=== PATIENT | female | born 1955 | race Caucasian/White ===

== ENCOUNTER 2020-06-01 06:01 | Observation (INO) ==
--- NOTE | 2020-04-28 09:11 | PAT Medication Instructions ---
Medication Instructions Date of Service April 28, 2020 Home Medications acetaminophen 500 mg PO BID ascorbic acid (vitamin C) [Vitamin C] 500 mg PO QAM calcium carbonate-vitamin D3 [Calcium 500 + D (D3)] 1 tab PO QAM darifenacin 15 mg PO PM loperamide 2 mg PO QID PRN loratadine 10 mg PO QAM mesalamine [Pentasa] 1,000 mg PO TID multivitamin 1 tab PO QAM naproxen 500 mg PO BID pantoprazole 40 mg PO 1200 ASK your surgeon for instructions mesalamine [Pentasa] 1,000 mg PO TID naproxen 500 mg PO BID DO NOT take the morning of surgery ascorbic acid (vitamin C) [Vitamin C] 500 mg PO QAM calcium carbonate-vitamin D3 [Calcium 500 + D (D3)] 1 tab PO QAM loperamide 2 mg PO QID PRN loratadine 10 mg PO QAM multivitamin 1 tab PO QAM Take morning of surgery With a small sip of water, OTHERWISE NOTHING TO EAT OR DRINK AFTER MIDNIGHT: acetaminophen 500 mg PO BID (okay to take up to 4 hours prior to surgery if n eeded) pantoprazole 40 mg PO 1200 (depending on time of surgery) Take evening before surgery acetaminophen 500 mg PO BID darifenacin 15 mg PO PM loperamide 2 mg PO QID PRN (if needed) Other Notes If you have any questions please call us at [phone] or [phone] or [phone] or [phone]
--- NOTE | 2020-04-29 13:14 | Anesthesiology Consultation ---
Date of Service April 29, 2020 Assessment & Plan (1) Encounter for pre-operative examination: Per assessment on 04/29: Travel screen negative. No known COVID-19 positive contacts or current COVID-19 related symptoms. Surgeon arranging preop COVID testing. Awaiting results. Chart Review Chart Review: Acceptable Risk for Surgery (pending surgeon-ordered PCP clearance) and Patient seen in Pre Admission Testing Teaching & Discussion Pre-Anesthesia Teaching/Discussion Notes: Instructed NPO after midnight before surgery,except medications with 15 cc of water. Medication instructions provided according to the PAT guidelines. History Surgery Operation Date: 06/01/20 07:00 Proposed Procedures p Right Total Knee Arthroplasty - Haroldo Gore DO Height/Weight Height: 5 ft 4 in Weight: 123.6 kg Allergies Allergy/AdvReac Type Severity Reaction Status Date / Time Iodinated Contrast Media Allergy Intermediate Rash, hives Verified 04/29/20 13:12 latex Allergy Intermediate Rash Verified 04/25/20 11:14 Penicillins Allergy Intermediate Hives Verified 04/29/20 13:12 Medications Home Medications Medication Instructions Recorded Confirmed Last Taken acetaminophen 500 mg PO BID 04/25/20 04/25/20 Unknown ascorbic acid (vitamin C) [Vitamin 500 mg PO QAM 04/25/20 04/25/20 Unknown C] calcium carbonate-vitamin D3 1 tab PO QAM 04/25/20 04/25/20 Unknown [Calcium 500 + D (D3)] darifenacin 15 mg PO PM 04/25/20 04/25/20 Unknown loperamide 2 mg PO QID PRN 04/25/20 04/25/20 Unknown loratadine 10 mg PO QAM 04/25/20 04/25/20 Unknown mesalamine [Pentasa] 1,000 mg PO TID 04/25/20 04/25/20 Unknown multivitamin 1 tab PO QAM 04/25/20 04/25/20 Unknown naproxen 500 mg PO BID 04/25/20 04/25/20 Unknown pantoprazole 40 mg PO 1200 04/25/20 04/25/20 Unknown Past Medical History Medical History Crohns disease GERD (gastroesophageal reflux disease) Left knee DJD Morbid obesity Osteoarthritis Overactive bladder Exercise / Class Metabolic Activity II 4-5 Yardwork/Stairs/Walk up hill Past Family History Family History Father Diabetes Grandmother (Paternal) Diabetes Past Surgical History Surgical History History of bladder surgery bladder sling History of carpal tunnel release R/L History of colonoscopy History of esophagogastroduodenoscopy (EGD) History of left oophorectomy History of nasal septoplasty History of tonsillectomy History of tooth extraction Hx of arthroscopy of shoulder left Hx of foot surgery left for plantar fasciitis Hx of oral surgery for dental work Past Anesthesia History No Hx of Anesthesia Complications (except PONV) and No Family Hx of Anesthesia Complications History of PONV No Hx of Motion Sickness and History of PONV (no issues with most recent 3 surgeries when anesthesiologist was aware of hx PONV) Social History Smoking Status: Never smoker Do You Dip or Chew Tobacco: No Hx Alcohol Use: No Hx Substance Use: No substance use type: does not use Review of Systems Patient denies chest pain, shortness of breath, dyspnea on exertion, fever, chills, cough, wheezing, palpitations. Physical Exam Vital Signs VITALS BP 129/75 P 96 TEMP 98.3 SP02 96%RA RESP 16 PHYSICAL Full neck and c-spine range of motion. Full TMJ range of motion. TMD 3 finger breaths Mallampati Score 3 Dentition: missing molars, root canal repair on upper front left Lungs: clear throughout to auscultation Cardiac: regular rate and rhythm, no murmurs noted Spine: normal Carotid arteries: negative bruit Extremities: no edema Thick neck Testing Laboratory Results 04/29/20 13:45 04/29/20 13:45 PT 10.3 Seconds (9.0-12.0) 04/29/20 13:45 INR 1.0 (0.9-1.1) 04/29/20 13:45 APTT 30.9 Seconds (21.0-31.0) 04/29/20 13:45 Hemoglobin A1c 5.9 % (4.5-5.6) H 04/29/20 13:45 Urine Color Yellow 04/29/20 13:45 Urine Appearance Clear (Clear) 04/29/20 13:45 Urine pH 5.0 (4.5-7.5) 04/29/20 13:45 Ur Specific [place] 1.017 (1.000-1.030) 04/29/20 13:45 Urine Protein Negative (Negative) 04/29/20 13:45 Urine Glucose (UA) Negative (Negative) 04/29/20 13:45 Urine Ketones Negative (Negative) 04/29/20 13:45 Urine Nitrite Negative (Negative) 04/29/20 13:45 Ur Leukocyte Esterase Trace (Negative) H 04/29/20 13:45 Urine WBC (Auto) 1-5 /hpf (0-5) 04/29/20 13:45 Urine RBC (Auto) 0-4 /hpf (0-4) 04/29/20 13:45 U Hyaline Cast (Auto) 0 /lpf (0-5) 04/29/20 13:45 U Epithel Cells (Auto) >30 /lpf (0-5) H 04/29/20 13:45 Urine Bacteria (Auto) Negative (Negative) 04/29/20 13:45 Blood Type A Positive 04/29/20 13:45 Antibody Screen NEGATIVE 04/29/20 13:45 04/29/20 13:45 Urine Culture - Final Urine,Clean Catch More than three types of organisms present, all low counts mixed probable skin aurelio. No further identifications or sensitivities to follow. Electrocardiogram Date: 04/29/20 Findings: + NSR @ (87) Chest X-Ray Date: 04/29/20 FINDINGS: Unchanged calcified granuloma of the right lung base. Cardiac mediastinal and hilar silhouettes are within normal limits. No pneumothorax, pleural effusion, airspace consolidation or overt pulmonary edema. Degenerative changes of the spine. Bones are grossly intact. IMPRESSION: No acute process.
--- NOTE | 2020-04-29 14:20 | XRay Report ---
XR chest Pre-admission PA/Lat HISTORY: 64 years-old Female pat preoperative exam. No acute chest complaints COMPARISON: Chest radiographs 03/05/2016 TECHNIQUE: PA and lateral views of the chest FINDINGS: Unchanged calcified granuloma of the right lung base. Cardiac mediastinal and hilar silhouettes are w ithin normal limits. No pneumothorax, pleural effusion, airspace consolidation or overt pulmonary yasmeen ma. Degenerative changes of the spine. Bones are grossly intact. IMPRESSION: No acute process. ACT 112: Negative or not required by law. The above report was generated using voice recognition software. It may contain grammatical, syntax o r spelling errors. Electronically signed by: Tino Pelletier M.D. 04/29/2020 2:19 PM
[2020-04-29 14:28] LABS: Basophils # (auto) 0.04 K/uL (0-0.2); Basophils % (auto) 0.5 %; Eosinophils # (auto) 0.41 K/uL (0-0.5); Eosinophils % (auto) 5.3 %; Hematocrit (blood only) 40.3 % (37-47); Immature Granulocytes # (auto) 0.01 K/uL (0.00-0.02); Immature Granulocytes % (auto) 0.1 %; Lymphocytes # (auto) 1.66 K/uL (1.2-3.4); Lymphocytes % (auto) 21.4 %; Mean Corpuscular Hemoglobin 27.3 pg (25-34); Mean Corpuscular Hgb Conc 32.3 g/dL (32-36); Mean Corpuscular Volume 84.7 fL (80-100); Mean Platelet Volume 8.8 fL (7.4-10.4); Monocytes # (auto) 0.41 K/uL (0.11-0.59); Monocytes % (auto) 5.3 %; Neutrophils # (auto) 5.21 K/uL (1.4-6.5); Neutrophils % (auto) 67.4 %; Platelet Count 263 K/uL (130-400); RDW Coefficient of Variation 14.9 % (11.5-14.5); RDW Standard Deviation 46.5 fL (36.4-46.3); Red Blood Count 4.76 M/uL (4.2-5.4); White Blood Count 7.74 K/uL (4.8-10.8)
[2020-04-29 14:30] LABS: Appearance Urine Clear (Clear); Bacteria Urine Automated Negative (Negative); Bilirubin Urine Negative (Negative); Blood Urine Negative (Negative); Cast Urine Automated 0 /lpf (0-5); Color Urine Yellow; Epithelial Cell Urine Auto >30 /lpf (0-5); Glucose Urine UA Negative (Negative); Ketones Urine Negative (Negative); Leukocyte Esterase Urine Trace (Negative); Nitrite Urine Negative (Negative); Protein Urine Negative (Negative); RBC Urine Automated 0-4 /hpf (0-4); Specific Gravity Urine 1.017 (1.000-1.030); Urobilinogen Urine Negative (Negative)
[2020-04-29 14:36] LABS: Partial Thromboplastin Ratio 1.1; Partial Thromboplastin Time 30.9 Seconds (21.0-31.0); Prothrombin Time 10.3 Seconds (9.0-12.0)
[2020-04-29 14:54] LABS: Albumin Level 3.5 gm/dl (3.4-5.0); BUN Creatinine Ratio 15.3 (10-20); Creatinine Clr Calc Pharmacy 70.8 ml/min; Est GFR (African American) 64.4; Est GFR (Non-African American) 55.6; Potassium 3.9 mmol/L (3.5-5.1)
--- NOTE | 2020-04-29 14:55 | Electrocardiogram Report ---
Test Reason : Blood Pressure : / mmHG Vent. Rate : 087 BPM Atrial Rate : 087 BPM P-R Int : 162 ms QRS Dur : 094 ms QT Int : 374 ms P-R-T Axes : 072 080 070 degrees QTc Int : 450 ms Normal sinus rhythm Normal ECG When compared with ECG of 05-MAR-2016 11:02, No significant change was found Confirmed by Samuel Finn ([id number]) on 04/29/2020 2:55:29 PM Referred By: Haroldo Gore Confirmed By:Samuel Finn
[2020-04-30 06:48] LABS: Estimated Average Glucose 123 mg/dl; Hemoglobin A1C 5.9 % (4.5-5.6)
--- NOTE | 2020-05-23 08:17 | History & Physical Report ---
Date of Service May 23, 2020 date of surgery: 06/01/20 Procedure: Right Total Knee Arthroplasty Assessment & Plan (1) Arthritis of right knee: she presents with increased pain in her right knee, has had previous injections without much relief but also has had reactions to these as well. her x-rays showing advanced DJD right knee, she would like to proceed with a block right TKA. The risks and benefits have been discussed including, but not limited to, risk of infection, nerve injury, stiffness, loss of motion, failure to improve, etc. Reasonable outcomes and options of treatment were discussed. An explanation of appropriate alternatives to the procedure that may be advantageous were discussed and their risks and benefits, as well as the risks and benefits of not proceeding with treatment. I offered to answer any additional inquiries concerning the treatment involved. All the patient's questions were answered. The patient is agreeable, understanding of the treatment plan and alternatives, and wishes to proceed with the treatment plan. History of Present Illness Chief Complaint: Right knee pain Primary Care Provider: Henri Carpenter PA-C Elvia is a 64 year old female who complains of Right knee pain, presents for pre-op evaluation prior to a Right total knee replacement by dr Gore at [facility]. she complains of pain, crepitus, decreased range of motion and stiffness in her right knee. she states that the symptoms have been chronic and non-traumatic and states that the symptoms are moderate-severe. The pain is described as aching, sharp and throbbing. her symptoms are aggravated by ascending stairs, daily activities, first steps while awake walking. Prior NSAIDs include Aleve and IBU. she has been treated with previous injections in the past without much relief and has also had reaction including increased pain and swelling after the injections. Allergies Allergy/AdvReac Type Severity Reaction Status Date / Time Iodinated Contrast Media Allergy Intermediate Rash, hives Verified 04/29/20 13:12 latex Allergy Intermediate Rash Verified 04/25/20 11:14 Penicillins Allergy Intermediate Hives Verified 04/29/20 13:12 Home Medications Home Medications Medication Instructions Recorded Confirmed Type acetaminophen 500 mg PO BID 04/25/20 04/25/20 History ascorbic acid (vitamin C) [Vitamin 500 mg PO QAM 04/25/20 04/25/20 History C] calcium carbonate-vitamin D3 1 tab PO QAM 04/25/20 04/25/20 History [Calcium 500 + D (D3)] darifenacin 15 mg PO PM 04/25/20 04/25/20 History loperamide 2 mg PO QID PRN 04/25/20 04/25/20 History loratadine 10 mg PO QAM 04/25/20 04/25/20 History mesalamine [Pentasa] 1,000 mg PO TID 04/25/20 04/25/20 History multivitamin 1 tab PO QAM 04/25/20 04/25/20 History naproxen 500 mg PO BID 04/25/20 04/25/20 History pantoprazole 40 mg PO 1200 04/25/20 04/25/20 History Past Med/Surg History Medical History Crohns disease GERD (gastroesophageal reflux disease) Left knee DJD Morbid obesity Osteoarthritis Overactive bladder Surgical History History of bladder surgery bladder sling History of carpal tunnel release R/L History of colonoscopy History of esophagogastroduodenoscopy (EGD) History of left oophorectomy History of nasal septoplasty History of tonsillectomy History of tooth extraction Hx of arthroscopy of shoulder left Hx of foot surgery left for plantar fasciitis Hx of oral surgery for dental work Family History Father Diabetes Grandmother (Paternal) Diabetes Social History Smoking Status: Never smoker Second Hand Exposure: No; Do You Dip or Chew Tobacco: No; Tobacco Cessation Education Requested by Patient: No Hx Alcohol Use: No Hx Substance Use: No Preferred Language: Yoruba Communication Ability: Effective Mica Spreader Required: No Beliefs That Will Affect Care: None Current Living Situation: Spouse Other Information That Helps Us Care for You: No Feels Safe at Home: Yes Safety Concerns: Feels Safe At This Time Assistive Devices: None Review of Systems Review of Systems: All systems reviewed & are unremarkable except as noted in HPI & below Constitutional: no fever, no chills and no sweats Respiratory: no cough and no dyspnea Cardiovascular: no chest pain, no dyspnea and no orthopnea Gastrointestinal: no abdominal pain, no nausea and no vomiting Musculoskeletal: as per Subjective / HPI Physical Exam Physical Exam: HT: 5ft 4in WT: 123.6kg Constitutional: WD/WN, vitals as above no acute distress Respiratory: normal respiratory effort, lungs clear to auscultation no respiratory distress, no labored breathing and does not use accessory muscles Cardiovascular: RRR, no murmur, no edema Gastrointestinal (Abdomen): normal bowel sounds, soft, nontender, no hepatosplenomegaly Musculoskeletal: Knee: + knee abnormal to inspection (Right knee-), + effusion (+1 effusion), + limited ROM of knee (ROM 0/3/110), + knee ROM with crepitation, + joint line tenderness (medial joint line) and + Nadine's sign positive; no deformity, no skin erythema, no ecchymosis, no valgus laxity, no varus laxity, anterior drawer test negative, Jasen's sign negative and pivot shift test negative Results & Data Results & Data ([facility]) Laboratory Results Laboratory Results WBC 7.74 K/uL (4.8-10.8) 04/29/20 13:45 RBC 4.76 M/uL (4.2-5.4) 04/29/20 13:45 Hgb 13.0 g/dL (12.0-16.0) 04/29/20 13:45 Hct 40.3 % (37-47) 04/29/20 13:45 MCV 84.7 fL (80-100) 04/29/20 13:45 MCH 27.3 pg (25-34) 04/29/20 13:45 MCHC 32.3 g/dL (32-36) 04/29/20 13:45 RDW Std Deviation 46.5 fL (36.4-46.3) H 04/29/20 13:45 RDW Coeff of Jabari 14.9 % (11.5-14.5) H 04/29/20 13:45 Plt Count 263 K/uL (130-400) 04/29/20 13:45 MPV 8.8 fL (7.4-10.4) 04/29/20 13:45 Immature Gran % (Auto) 0.1 % 04/29/20 13:45 Neut % (Auto) 67.4 % 04/29/20 13:45 Lymph % (Auto) 21.4 % 04/29/20 13:45 [place] % (Auto) 5.3 % 04/29/20 13:45 Eos % (Auto) 5.3 % 04/29/20 13:45 Baso % (Auto) 0.5 % 04/29/20 13:45 Neut # (Auto) 5.21 K/uL (1.4-6.5) 04/29/20 13:45 Lymph # (Auto) 1.66 K/uL (1.2-3.4) 04/29/20 13:45 Woods # (Auto) 0.41 K/uL (0.11-0.59) 04/29/20 13:45 Eos # (Auto) 0.41 K/uL (0-0.5) 04/29/20 13:45 Baso # (Auto) 0.04 K/uL (0-0.2) 04/29/20 13:45 Immature Gran # (Auto) 0.01 K/uL (0.00-0.02) 04/29/20 13:45 PT 10.3 Seconds (9.0-12.0) 04/29/20 13:45 INR 1.0 (0.9-1.1) 04/29/20 13:45 APTT 30.9 Seconds (21.0-31.0) 04/29/20 13:45 PTT Ratio 1.1 04/29/20 13:45 Sodium 138 mmol/L (136-145) 04/29/20 13:45 Potassium 3.9 mmol/L (3.5-5.1) 04/29/20 13:45 Chloride 106 mmol/L (98-107) 04/29/20 13:45 Carbon Dioxide 24 mmol/L (21-32) 04/29/20 13:45 Anion Gap 8.0 (3-11) 04/29/20 13:45 BUN 16 mg/dl (7-18) 04/29/20 13:45 Creatinine 1.07 mg/dl (0.6-1.2) 04/29/20 13:45 Est Cr Clr Drug Dosing 70.8 ml/min 04/29/20 13:45 Est GFR ( Amer) 64.4 04/29/20 13:45 Est GFR (Non-Af Amer) 55.6 04/29/20 13:45 BUN/Creatinine Ratio 15.3 (-20) 04/29/20 13:45 Glucose 112 mg/dl (70-99) H 04/29/20 13:45 Estimat Average Glucose 123 mg/dl 04/29/20 13:45 Hemoglobin A1c 5.9 % (4.5-5.6) H 04/29/20 13:45 Calcium 9.0 mg/dl (8.5-10.1) 04/29/20 13:45 Albumin 3.5 gm/dl (3.4-5.0) 04/29/20 13:45 Urine Color Yellow 04/29/20 13:45 Urine Appearance Clear (Clear) 04/29/20 13:45 Urine pH 5.0 (4.5-7.5) 04/29/20 13:45 Ur Specific [place] 1.017 (1.000-1.030) 04/29/20 13:45 Urine Protein Negative (Negative) 04/29/20 13:45 Urine Glucose (UA) Negative (Negative) 04/29/20 13:45 Urine Ketones Negative (Negative) 04/29/20 13:45 Urine Blood Negative (Negative) 04/29/20 13:45 Urine Nitrite Negative (Negative) 04/29/20 13:45 Urine Bilirubin Negative (Negative) 04/29/20 13:45 Urine Urobilinogen Negative (Negative) 04/29/20 13:45 Ur Leukocyte Esterase Trace (Negative) H 04/29/20 13:45 Urine WBC (Auto) 1-5 /hpf (0-5) 04/29/20 13:45 Urine RBC (Auto) 0-4 /hpf (0-4) 04/29/20 13:45 U Hyaline Cast (Auto) 0 /lpf (0-5) 04/29/20 13:45 U Epithel Cells (Auto) >30 /lpf (0-5) H 04/29/20 13:45 Urine Bacteria (Auto) Negative (Negative) 04/29/20 13:45 Blood Type A Positive 04/29/20 13:45 Antibody Screen NEGATIVE 04/29/20 13:45 Diagnostic Findings Right Knee X-ray showing advanced degenerative changes to the right knee, narrowing of the medial compartment and patello-femoral joint with patellar spurring noted, findings showing joint space narrowing of the medial compartment and patello-femoral joint, osteophyte formation and subchondral sclerosis noted. overall varus alignment. no acute bony pathology noted.
[~2020-06-01 06:01] MED LIST: ACETAMINOPHEN 500 MG TAB PO SCH; CeleBREX 200 MG CAP PO SCH; FAMOTIDINE 20 MG TAB PO SCH; GABAPENTIN 600 MG DOSE PO SCH; LR 500ML BOLUS, THEN 15ML/HR IV SCH; METOCLOPRAMIDE HCL 10 MG TABLET PO SCH; ROPIVACAINE 0.5% HCL/PF 150 MG, BUPIVACAINE 0.75% MPF 20 ML, EPINEPHrine 30MG/30ML (OR ... INFIL SCH; TRANEXAMIC ACID 1,000 MG **IV Intra-op IV SCH; TRANEXAMIC ACID 1,000 MG **IV Pre-op IV SCH; dexAMETHasone 4 MG TAB PO SCH
--- OUTSIDE RECORDS SUMMARY | 2020-06-01 06:05 | External Medical Summary | Continuity of Care Document ---
:1955 Author Name Nakia Shannon, Provider Address Unavailable Unavailable , Care Team Providers Name Role Phone David Shen [email or web address]AV[facility] CAST Unavailable Unavailable Problems Active medical history not documented Allergies and Adverse Reactions Allergy history not documented Medications Medications not documented Procedures Procedures not documented Immunizations Immunizations not documented Plan of Treatment Planned Observations Planned Goals not documented Results No Known Results Results not documented Encounters Appointment; David Shen M.D. 23-Feb-2014 13:40 Encounter Diagnosis: Problem not documented
[2020-06-01] MEDS ORDERED: BUPIVACAINE 0.25% 30 ML VIAL ONE (06:32)
[2020-06-01] MEDS ORDERED: BUPIVACAINE 0.5 % 5 MG/1 ML PF 10ML VIAL ONE (06:32)
[2020-06-01] MEDS ORDERED: KETAMINE 50 MG/5 ML SYRINGE ONE (06:41)
[2020-06-01] MEDS ORDERED: MIDAZOLAM HCL 1 MG/ML 2ML VIAL ONE ×2 (06:41→09:14)
[2020-06-01] MEDS ORDERED: PROPOFOL IV EMULSION 10 MG/ML 20 ML VIAL IV ONE (06:41)
[2020-06-01] MEDS ORDERED: DEXAMETHASONE SOD INJ 4 MG/ML VIAL ONE (06:41)
[2020-06-01] MEDS ORDERED: LIDOCAINE HCL 2% 2 ML VIAL/AMP(20MG/ML) INFIL ONE (06:41)
[2020-06-01] MEDS ORDERED: ONDANSETRON INJ 2 MG/ML 2 ML VIAL ONE (06:41)
[2020-06-01] MEDS ORDERED: GLYCOPYRROLATE 0.2 MG/ML VIAL ONE (06:41)
--- NOTE | 2020-06-01 07:13 | History & Physical Bridge Note ---
Date of Service June 01, 2020 History & Physical Bridge Note I have examined the patient, reviewed the History & Physical and in the interval since the performance of the History & Physical I have noted the following changes of clinical significance: no changes noted
[2020-06-01] MEDS ORDERED: Nursing to Pharmacy Communication SCH (07:15)
[2020-06-01] MEDS ORDERED: ORTHO JOINT ANESTHETIC ONE ×2 (07:20→08:53)
[2020-06-01] MEDS ORDERED: BACITRACIN INJ 50,000 UNIT VIAL ONE ×2 (07:20→08:53)
[2020-06-01] MEDS ORDERED: ATROPINE SULFATE 0.1 MG/ML 10ML SYR IV PRN (08:14)
[2020-06-01] MEDS ORDERED: ONDANSETRON INJ 2 MG/ML 2 ML VIAL IV PRN ×2 (08:14→12:04)
[2020-06-01] MEDS ORDERED: ePHEDrine sulfate 50 MG/ML AMP IV PRN (08:14)
--- NOTE | 2020-06-01 10:23 | Operative Report ---
Post Operative Report Pre & Post Diagnosis Operation Date: 06/01/20 08:20 Pre-Op Diagnosis: Osteoarthritis, Right Knee Post-Op Diagnosis: Osteoarthritis, Right Knee I identified the patient and participated in the time-out.: Yes Procedure Operation Date: 06/01/20 08:20 Actual Procedures p Right Total Knee Arthroplasty, Cemented(Right) utilizing [employer] journey 2 patient matched total knee arthroplasty size 4 femur to tibia 11 polytwenty 9 oval patella- Haroldo Gore DO Surgeon Haroldo Gore DO Decal [employer]lier [employer] ABBASI Estimated Blood Loss 5 Findings Consistent with Post-Op Diagnosis Patient presents with severe end-stage DJD 10 degree flexion contracture varus alignment subchondral cystic changes marginal osteophytes moderate to large effusion eburnated bone tricompartmentally Specimens Bone and cartilage Drains Medium bore Hemovac Anesthesia Type MAC Spinal Regional Disposition Accompanied Patient To Recovery: No Disposition: Recovery Room Indications Patient presents with severe end-stage tricompartmental degenerative joint disease right knee no response to conservative management patient failed times a corticosteroid injection Visco supplementation relative rest activity modification weight loss physical therapy the above intraoperative findings noted time surgery Description of Procedure After proper prepping and draping of the Right lower extremity anterior midline incision was made over the region of the extensor extensor mechanism after meticulous hemostasis was obtained and maintained in subcutaneous tissues a medial parapatellar incision was made The patella was subluxed lateralward the medial lateral gutter were cleaned from any hypertrophic synovitis and scar tissue of the distal femoral block was placed and the distal femoral osteotomy cut was made subsequently the chamfers anterior and posterior osteotomy cuts were made utilizing the 4-in-1 block the tibia was subsequently subluxed anteriorward medial and ateral meniscal remnants were excised in their entirety remnants of the anterior and posterior cruciate ligaments were excised in their entirety excellent exposure of the proximal tibia was obtained the tibial osteotomy guide was placed on the proximal tibial osteotomy cut was made once again the knee was irrigated with copious amounts of sterile saline solution the patella was subsequently everted lateralward thickened scar tissue around the patella was removed the patella was subsequently cut utilizing a freehand technique and was drilled prepared for final preparation and placement of patella socially flexion-extension gaps were checked and the equal and symmetric trials were placed to the appropriate femoral and tibial trials with poly-spacer being placed for equal flexion and extension gaps and full range of motion including extension to 0 and flexion to 140 the trial components after having been taken to recovery range of motion was subsequently removed meticulous hemostasis was obtained and maintained subsequently a knee block injection of joint cocktail including ropivacaine 0.5% 150 mg. Bupivacaine 0.5% epinephrine 1-200,030 mL's toradol 30 mg dexamethasone 4 mg ketamine 10 mg clonidine 100 micrograms normal saline solution 30 mg was infiltrated into the soft tissues of the posterior knee medial lateral gutters and periosteal synovium special attention was paid to protect neurovascular structures at all times subsequently trial components having been removed the knee was irrigated with sterile saline solution. debris was removed the proximal tibia was subsequently prepared and was made ready for the placement of the tibial component tibial component was also cemented and tamped into position the femoral component was subsequently placed and cemented in the position the patellar component was subsequently cemented in position because hemostasis once again obtained and maintained wound having been thoroughly irrigated with debridement and debridement lavage was performed as well as a medial parapatellar incision closed with #1 Vicryl in interrupted fashion subcutaneous was closed with #2 Vicryl skin was closed with skin clips. PA-C was necessary for prepping and drapping as well as wound closure of deep fascia Sub cutaneous tissue and skin and was necessary for the case. A sterile compressive dressing was placed patient was taken to recovery in stable condition of report dictated by Bao I attest to the content of the Intraoperative Record and any orders documented therein. Any exceptions are noted below. I attest to the content of the Intraoperative Record and any orders documented therein. Any exceptions are noted below.
--- NOTE | 2020-06-01 11:41 | XRay Report ---
RIGHT KNEE 2 VIEWS History: Right total knee arthroplasty. Degenerative arthritis. Postop. FINDINGS: The patient is status post a right total knee arthroplasty. The hardware is intact. No frac ture or dislocation. Surgical drains are in place. IMPRESSION: Right total knee arthroplasty. No evidence for hardware complication. ACT 112: Negative or not required by law. Electronically signed by: Henrique Sargent M.D. 06/01/2020 11:39 AM
[2020-06-01] MEDS ORDERED: SODIUM CHLORIDE 0.9% 1000ML 1,000 ML IV SCH (12:04)
[2020-06-01] MEDS ORDERED: HYDROmorphone INJ 0.5 MG/0.5 ML SYR IV PRN (12:04)
[2020-06-01] MEDS ORDERED: NALOXONE HCL 0.4 MG/1 ML VIAL/CARP IV PRN (12:04)
[2020-06-01] MEDS ORDERED: MAGNESIUM HYDROXIDE SUSP 30 ML UDC PO PRN (12:04)
[2020-06-01] MEDS ORDERED: bisacodyL 10 MG SUPP PR PRN (12:04)
[2020-06-01] MEDS: PANTOprazole 40 MG TAB PO SCH (13:32)
[2020-06-01] MEDS: ACETAMINOPHEN 500 MG TAB PO SCH ×2 (13:32→21:07)
--- NOTE | 2020-06-01 14:42 | Anesthesiology Progress Note ---
Date of Service June 01, 2020 Anesthesia Post Procedure Vital Signs Vital Signs: Temp Pulse Pulse Resp BP BP Pulse Ox 06/01/20 14:06 86 16 142/82 H 95 06/01/20 13:00 85 16 148/88 H 94 06/01/20 12:35 80 16 138/83 94 06/01/20 12:00 36.6 C 79 16 138/83 94 06/01/20 11:45 72 14 149/81 H 96 06/01/20 11:35 37.2 C 74 14 156/75 H 96 06/01/20 11:25 87 14 139/84 94 06/01/20 11:15 86 14 129/77 99 06/01/20 11:08 37.7 C H 89 14 129/75 100 06/01/20 07:22 66 18 163/92 H 95 06/01/20 06:40 36.9 C 80 20 162/81 H 95 Transfer of Care Handoff Completed per policy Notes Mental Status: alert / awake / arousable and participated in evaluation Patient Amnestic to Procedure: Yes Nausea / Vomiting: adequately controlled Pain: adequately controlled Airway Patency, RR, SpO2: stable & adequate BP & HR: stable & adequate Hydration State: stable & adequate Neuraxial Anesthesia: was administered and sensory block is resolving Anesthetic Complications: no major complications apparent and Pt Satisfied with anesthetic care
[2020-06-01] MEDS: MESALAMINE 250 MG CAPCR PO SCH ×2 (14:46→21:05)
[2020-06-01] MEDS: [UNRECOGNIZED DRUG - OTHER] SCH (15:37)
[2020-06-01] MEDS: ceFAZolin 2000MG 2,000 MG/15 ML SYR IV SCH (16:34)
[2020-06-01] MEDS: FERROUS GLUCONATE 324 MG TAB PO SCH (16:34)
[2020-06-01] MEDS ORDERED: SENNA 8.6 MG TAB PO SCH (21:00)
[2020-06-01] MEDS: DOCUSATE SODIUM 100 MG CAP PO SCH (21:05)
[2020-06-01] MEDS: ASPIRIN 81 MG ECTAB PO SCH (21:05)
[2020-06-01] MEDS: oxyCODONE HCL IR 5 MG TAB (IMMEDIATE RELEASE) PO PRN (21:06)
[2020-06-02] MEDS: ceFAZolin 2000MG 2,000 MG/15 ML SYR IV SCH (00:18)
[2020-06-02] MEDS: [UNRECOGNIZED DRUG - OTHER] SCH ×2 (00:18→08:05)
[2020-06-02] MEDS ORDERED: COUGH DROP (SUGAR FREE) LOZ 24 LOZ/1 BOX BUCCAL ONE (00:21)
[2020-06-02] MEDS: oxyCODONE HCL IR 5 MG TAB (IMMEDIATE RELEASE) PO PRN ×3 (03:43→14:37)
[2020-06-02] MEDS: ACETAMINOPHEN 500 MG TAB PO SCH ×2 (05:56→14:37)
[2020-06-02 07:47] VITALS: BP 127/69; TEMP 98.1; O2SAT 95
[2020-06-02] MEDS: FERROUS GLUCONATE 324 MG TAB PO SCH (08:05)
[2020-06-02] MEDS: ASPIRIN 81 MG ECTAB PO SCH (08:05)
--- NOTE | 2020-06-02 08:05 | Anesthesiology Progress Note ---
Date of Service June 02, 2020 Anesthesia Post Procedure Vital Signs Vital Signs: Temp Pulse Pulse Pulse Resp BP BP 06/02/20 07:46 36.7 C 65 16 127/69 06/02/20 03:58 36.9 C 92 H 16 134/79 06/01/20 23:09 36.8 C 99 H 16 146/81 H 06/01/20 19:19 36.6 C 107 H 16 160/86 H 06/01/20 18:10 36.7 C 87 18 148/84 H 06/01/20 15:15 36.6 C 94 H 18 147/98 H 06/01/20 14:06 86 16 142/82 H 06/01/20 13:00 85 16 148/88 H 06/01/20 12:35 80 16 138/83 06/01/20 12:00 36.6 C 79 16 138/83 06/01/20 11:45 72 14 149/81 H 06/01/20 11:35 37.2 C 74 14 156/75 H 06/01/20 11:25 87 14 139/84 06/01/20 11:15 86 14 129/77 06/01/20 11:08 37.7 C H 89 14 129/75 Pulse Ox 06/02/20 07:46 95 06/02/20 03:58 98 06/01/20 23:09 95 06/01/20 19:19 95 06/01/20 18:10 97 06/01/20 15:15 95 06/01/20 14:06 95 06/01/20 13:00 94 06/01/20 12:35 94 06/01/20 12:00 94 06/01/20 11:45 96 06/01/20 11:35 96 06/01/20 11:25 94 06/01/20 11:15 99 06/01/20 11:08 100 Pain Intensity Head: Pain Intensity: 7 Notes Mental Status: alert / awake / arousable and participated in evaluation Patient Amnestic to Procedure: Yes Nausea / Vomiting: adequately controlled Pain: adequately controlled Airway Patency, RR, SpO2: stable & adequate BP & HR: stable & adequate Hydration State: stable & adequate Neuraxial Anesthesia: was administered and sensory block resolved Anesthetic Complications: no major complications apparent and Pt Satisfied with anesthetic care
[2020-06-02] MEDS: MESALAMINE 250 MG CAPCR PO SCH ×2 (08:06→14:37)
[2020-06-02] MEDS: DOCUSATE SODIUM 100 MG CAP PO SCH (08:06)
[2020-06-02 08:18] LABS: Hematocrit (blood only) 35.3 % (37-47); Hemoglobin 11.4 g/dL (12.0-16.0); Mean Corpuscular Hemoglobin 27.6 pg (25-34); Mean Corpuscular Hgb Conc 32.3 g/dL (32-36); Mean Corpuscular Volume 85.5 fL (80-100); Mean Platelet Volume 8.7 fL (7.4-10.4); Platelet Count 258 K/uL (130-400); RDW Coefficient of Variation 14.8 % (11.5-14.5); RDW Standard Deviation 46.4 fL (36.4-46.3); Red Blood Count 4.13 M/uL (4.2-5.4); White Blood Count 14.03 K/uL (4.8-10.8)
[2020-06-02 08:50] LABS: BUN Creatinine Ratio 22.1 (10-20); Calcium 8.9 mg/dl (8.5-10.1); Creatinine Clr Calc Pharmacy 72.5 ml/min; Est GFR (African American) 66.7; Est GFR (Non-African American) 57.5; Potassium 4.1 mmol/L (3.5-5.1)
[2020-06-02] MEDS ORDERED: CALCIUM 600MG + VIT D 400 IU TAB PO SCH (09:00)
[2020-06-02] MEDS ORDERED: LORATADINE 10 MG TAB PO SCH (09:00)
[2020-06-02] MEDS ORDERED: MULTIVITAMIN TAB PO SCH (09:00)
--- NOTE | 2020-06-02 09:17 | Orthopedic Progress Note ---
Date of Service June 02, 2020 Assessment & Plan (1) Arthritis of right knee: POD 1 s/p Right TKA Mild leukocytosis - pt asymptomatic at this time. Likely due to surgical stress and preop steroids. PT/OT protocols. WBAT. DVT prophylaxis - ASA po bid, SCD's, DARRYL's Pain management as written. DC planning - services upon dc. Admission and Anticipated Discharge Date Admission Date: June 01, 2020 Subjective POD 1 Pt sitting up at bedside eating breakfast. No complaints this AM. Pain controlled. Denies SOB,CP,LH. Hoping to go home today. Physical Exam Physical Exam: Dressings are C/D/I. Calves are soft, NT; NV intact. Toes mobile. Good DF/PF of the right foot/ankle. Results & Data ([facility]) Vital Signs (Past 12 Hours) Vital Signs Temp Pulse Pulse Resp BP Pulse Ox 06/02/20 07:46 36.7 C 65 16 127/69 95 06/02/20 03:58 36.9 C 92 H 16 134/79 98 06/01/20 23:09 36.8 C 99 H 16 146/81 H 95 Laboratory Results Laboratory Results WBC 14.03 K/uL (4.8-10.8) H 06/02/20 07:38 RBC 4.13 M/uL (4.2-5.4) L 06/02/20 07:38 Hgb 11.4 g/dL (12.0-16.0) L 06/02/20 07:38 Hct 35.3 % (37-47) L 06/02/20 07:38 MCV 85.5 fL (80-100) 06/02/20 07:38 MCH 27.6 pg (25-34) 06/02/20 07:38 MCHC 32.3 g/dL (32-36) 06/02/20 07:38 RDW Std Deviation 46.4 fL (36.4-46.3) H 06/02/20 07:38 RDW Coeff of Jabari 14.8 % (11.5-14.5) H 06/02/20 07:38 Plt Count 258 K/uL (130-400) 06/02/20 07:38 MPV 8.7 fL (7.4-10.4) 06/02/20 07:38 Immature Gran % (Auto) 0.1 % 04/29/20 13:45 Neut % (Auto) 67.4 % 04/29/20 13:45 Lymph % (Auto) 21.4 % 04/29/20 13:45 [place] % (Auto) 5.3 % 04/29/20 13:45 Eos % (Auto) 5.3 % 04/29/20 13:45 Baso % (Auto) 0.5 % 04/29/20 13:45 Neut # (Auto) 5.21 K/uL (1.4-6.5) 04/29/20 13:45 Lymph # (Auto) 1.66 K/uL (1.2-3.4) 04/29/20 13:45 [place] # (Auto) 0.41 K/uL (0.11-0.59) 04/29/20 13:45 Eos # (Auto) 0.41 K/uL (0-0.5) 04/29/20 13:45 Baso # (Auto) 0.04 K/uL (0-0.2) 04/29/20 13:45 Immature Gran # (Auto) 0.01 K/uL (0.00-0.02) 04/29/20 13:45 PT 10.3 Seconds (9.0-12.0) 04/29/20 13:45 INR 1.0 (0.9-1.1) 04/29/20 13:45 APTT 30.9 Seconds (21.0-31.0) 04/29/20 13:45 PTT Ratio 1.1 04/29/20 13:45 Sodium 138 mmol/L (136-145) 06/02/20 07:38 Potassium 4.1 mmol/L (3.5-5.1) 06/02/20 07:38 Chloride 108 mmol/L (98-107) H 06/02/20 07:38 Carbon Dioxide 23 mmol/L (21-32) 06/02/20 07:38 Anion Gap 7.0 (3-11) 06/02/20 07:38 BUN 23 mg/dl (7-18) H 06/02/20 07:38 Creatinine 1.04 mg/dl (0.6-1.2) 06/02/20 07:38 Est Cr Clr Drug Dosing 72.5 ml/min 06/02/20 07:38 Est GFR ( Amer) 66.7 06/02/20 07:38 Est GFR (Non-Af Amer) 57.5 06/02/20 07:38 BUN/Creatinine Ratio 22.1 (10-20) H 06/02/20 07:38 Glucose 105 mg/dl (70-99) H 06/02/20 07:38 Estimat Average Glucose 123 mg/dl 04/29/20 13:45 Hemoglobin A1c 5.9 % (4.5-5.6) H 04/29/20 13:45 Calcium 8.9 mg/dl (8.5-10.1) 06/02/20 07:38 Albumin 3.5 gm/dl (3.4-5.0) 04/29/20 13:45 Urine Color Yellow 04/29/20 13:45 Urine Appearance Clear (Clear) 04/29/20 13:45 Urine pH 5.0 (4.5-7.5) 04/29/20 13:45 Ur Specific Lawrence 1.017 (1.000-1.030) 04/29/20 13:45 Urine Protein Negative (Negative) 04/29/20 13:45 Urine Glucose (UA) Negative (Negative) 04/29/20 13:45 Urine Ketones Negative (Negative) 04/29/20 13:45 Urine Blood Negative (Negative) 04/29/20 13:45 Urine Nitrite Negative (Negative) 04/29/20 13:45 Urine Bilirubin Negative (Negative) 04/29/20 13:45 Urine Urobilinogen Negative (Negative) 04/29/20 13:45 Ur Leukocyte Esterase Trace (Negative) H 04/29/20 13:45 Urine WBC (Auto) 1-5 /hpf (0-5) 04/29/20 13:45 Urine RBC (Auto) 0-4 /hpf (0-4) 04/29/20 13:45 U Hyaline Cast (Auto) 0 /lpf (0-5) 04/29/20 13:45 U Epithel Cells (Auto) >30 /lpf (0-5) H 04/29/20 13:45 Urine Bacteria (Auto) Negative (Negative) 04/29/20 13:45 Blood Type A Positive 04/29/20 13:45 Antibody Screen NEGATIVE 04/29/20 13:45
[2020-06-02] MEDS: PANTOprazole 40 MG TAB PO SCH (12:10)
[2020-06-02 16:03] VITALS: PULSE 92
--- NOTE | 2020-06-12 16:14 | Discharge Summary ---
Date of Service June 12, 2020 Admission HPI Per Admitting Provider Elvia is a 64 year old female who complains of Right knee pain, presents for pre-op evaluation prior to a Right total knee replacement by dr Gore at [facility]. she complains of pain, crepitus, decreased range of motion and stiffness in her right knee. she states that the symptoms have been chronic and non-traumatic and states that the symptoms are moderate-severe. The pain is described as aching, sharp and throbbing. her symptoms are aggravated by ascending stairs, daily activities, first steps while awake walking. Prior NSAIDs include Aleve and IBU. she has been treated with previous injections in the past without much relief and has also had reaction including increased pain and swelling after the injections. Admission Exam Per Admitting Provider Physical Exam: HT: 5ft 4in WT: 123.6kg Constitutional: WD/WN, vitals as above no acute distress Respiratory: normal respiratory effort, lungs clear to auscultation no respiratory distress, no labored breathing and does not use accessory muscles Cardiovascular: RRR, no murmur, no edema Gastrointestinal (Abdomen): normal bowel sounds, soft, nontender, no hepatosplenomegaly Musculoskeletal: Knee: + knee abnormal to inspection (Right knee-), + effusion (+1 effusion), + limited ROM of knee (ROM 0/3/110), + knee ROM with crepitation, + joint line tenderness (medial joint line) and + Nadine's sign positive; no deformity, no skin erythema, no ecchymosis, no valgus laxity, no varus laxity, anterior drawer test negative, Jasen's sign negative and pivot shift test negative Principal Diagnosis Right Knee Djd Discharge Data Allergies Allergy/AdvReac Type Severity Reaction Status Date / Time Iodinated Contrast Media Allergy Intermediate Rash, hives Verified 06/01/20 06:14 latex Allergy Intermediate Rash Verified 06/01/20 06:14 Penicillins Allergy Intermediate Hives Verified 06/01/20 06:14 Consultations 06/01/20 12:04 Consult Case Management - Discharge Planning Routine Procedures Performed Operation Date: 06/01/20 08:20 Actual Procedures p Right Total Knee Arthroplasty, Cemented(Right) - Haroldo Gore DO Ordered Studies 06/01/20 05:00 US - OR guided needle placemen Routine Hospital Course (1) Arthritis of right knee: Addendum (Blank) Addendum June 02, 2020 13:58 Pt progressing well with PT. VSS. Pt states her pain remains controlled. HH services set up for PT/Nursing. Plan for HH Nursing to dc dressing and drain tomorrow at home. Addendum Signed By: <Electronically signed by Fili Ceja PA-C>06/02/209Addendum Cosigned By: Created: 06/02/20 Date of Service June 02, 2020 Assessment & Plan (1) Arthritis of right knee: POD 1 s/p Right TKA Mild leukocytosis - pt asymptomatic at this time. Likely due to surgical stress and preop steroids. PT/OT protocols. WBAT. DVT prophylaxis - ASA po bid, SCD's, DARRYL's Pain management as written. DC planning - HH services upon dc. Admission and Anticipated Discharge Date Admission Date: June 01, 2020 Subjective POD 1 Pt sitting up at bedside eating breakfast. No complaints this AM. Pain c ontrolled. Denies SOB,CP,LH. Hoping to go home today. Physical Exam Physical Exam: Dressings are C/D/I. Calves are soft, NT; NV intact. Toes mobile. Good DF/PF of the right foot/ankle. Results & Data ([facility]) Vital Signs (Past 12 Hours) Vital Signs Temp Pulse Pulse Resp BP Pulse Ox 06/02/20 07:46 36.7 C 65 16 127/69 95 06/02/20 03:58 36.9 C 92 H 16 134/79 98 06/01/20 23:09 36.8 C 99 H 16 146/81 H 95 Laboratory Results Laboratory Results WBC 14.03 K/uL (4.8-10.8) H 06/02/20 07:38 RBC 4.13 M/uL (4.2-5.4) L 06/02/20 07:38 Hgb 11.4 g/dL (12.0-16.0) L 06/02/20 07:38 Hct 35.3 % (37-47) L 06/02/20 07:38 Total Time Total Time Spent Total Time Spent (In Minutes): 5 Discharge Plan Discharge Items Patient Disposition: Home - Home Health Services Reason For Visit: Osteoarthritis, Right Knee Discharge Diagnosis: Osteoarthritis Right Knee Activity: Per Instructions section Weightbearing: Right weightbearing Weightbearing Comment: as tolerated with walker Non-emergency contact: Surgeon Call non-emergency contact if: your pain is not controlled, your temperature is above 101.5, your wound has increased redness and your wound has increased drainage Follow-up/Referrals: Henri Carpenter PA-C [Primary Care Provider] - Diet: Regular Addtl Attending Provider Instructions: Your drain and dressing will be discontinued on 06/03/2020 by Home Health Nursing. ACTIVITY RECOMMENDATIONS: SELF CARE INSTRUCTIONS AFTER TOTAL KNEE REPLACEMENT A. You may need to continue a physical therapy program after discharge from the hospital. There are several options available to you. Your doctor will assist you in selecting the best one for you. 1. An out-patient facility 2 to 3 times a week for therapy or home therapy. 2. Continue working on all exercises taught to you in the hospital. Your goals should be to increase bending of your knee to 90 degrees and beyond and to fully straighten your knee. B. You may progress at your own pace from walking with a walker or crutches to a cane; then to no assistive devices. C. Make walking a part of your daily routine. Be up as much as comfortable with rest periods throughout the day. Rest with leg elevation is very important. Use the ice wrap frequently for the first 3-4 weeks. D. There are no restrictions on activities. You may ride in a car, shop, participate in supervisor mattress and boxsprings and all social activities. E. Wear the long elastic stockings (DARRYL hose) 20 hours a day for 2 weeks after surgery. They can be removed several times a day for laundering and for a bath. F. You may shower, no tub baths until cleared by your doctor. SPECIAL CARE INSTRUCTIONS: VERY IMPORTANT TO READ AND REVIEW A. There are a few signs you need to watch for after you are home. Call [facility] if you notice any of the followin. Increased severe knee pain. Some pain is expected especially when you exercise. 2. Increased swelling in your leg or knee; pain or swelling of the calf muscle in either lower leg. 3. Any fluid drainage from the incision. 4. Shortness of breath or chest pain. B. Please call [facility] at if you have any concerns or questions about your operation or recovery. The doctor or his nurse will return your call promptly. C. You must take antibiotics before dental work, bladder, bowel or other surgery. Your doctor will provide you with a permanent care to carry describing this precaution. IMPORTANT: * REMEMBER TO TAKE ASPIRIN, 81 MG, TWICE DAILY FOR 4 WEEKS UNLESS OTHERWISE DIRECTED. THIS IS YOUR BLOOD THINNER. * HIGH RISK PATIENTS MAY BE PRESCRIBED A STRONGER BLOOD THINNER. THIS WILL BE PROVIDED AT DISCHARGE. * CALL IF INCREASED PAIN, REDNESS, DRAINAGE OR FEVER GREATER THAT 101. * WEAR DARRYL HOSE 20 HOURS PER DAY FOR 2 WEEKS. * DERMABOND Prineo- This is a mesh tape dressing that is covered with glue. It should remain in place until the incision is properly healed, usually 10-14 days. Keep this covered with gauze until seen back in the office. This dressing is designed to naturally slough off. You may trim the excess mesh tape as it peels off. Incision may be briefly wet in a shower. Dry immediately by blotting with a clean, dry towel. Do not bath or swim until instructed by your doctor. Do not scratch, rub, or pick at the dressing. Do not apply any topical ointments or lotions until dressing is completely removed and/or instructed by your doctor. There may be a small piece of suture material at one end of your incision. Do not pull or trim this. If it is bothersome or catching on clothing, you may cover it with a band-aid. Call the office with any wound questions. . FOLLOW UP VISIT: If appointment is not already scheduled: Please call [facility] to make a follow-up appointment for 2 weeks after your surgery at . Stand-Alone Forms: My [facility] [employer], Smoking Cessation Medications and DC Order Prescriptions: New aspirin 81 mg Tablet,Delayed Release (Dr/Ec) 81 mg PO BID 30 Days Qty: 60 RF: 0 acetaminophen 500 mg Tablet 1,000 mg PO Q8 14 Days Qty: 84 RF: 0 doxycycline hyclate 100 mg capsule 100 mg PO BID 14 Days Qty: 28 RF: 1 Continued multivitamin Tablet 1 tab PO QAM RF: 0 loperamide 2 mg Tablet 2 mg PO QID PRN (Reason: Diarrhea) RF: 0 ascorbic acid (vitamin C) [Vitamin C] 500 mg Tablet 500 mg PO QAM RF: 0 pantoprazole 40 mg Tablet,Delayed Release (Dr/Ec) 40 mg PO 1200 RF: 0 loratadine 10 mg Tablet 10 mg PO QAM RF: 0 Pentasa 500 mg Capsule, Extended Release 1,000 mg PO TID RF: 0 darifenacin 15 mg Tablet Extended Release 24 Hr 15 mg PO PM RF: 0 calcium carbonate-vitamin D3 500 mg(1,250mg) -125 unit Tablet 1 tab PO QAM RF: 0 Discontinued acetaminophen 500 mg Tablet 500 mg PO BID RF: 0 naproxen 500 mg Tablet,Delayed Release (Dr/Ec) 500 mg PO BID RF: 0 Discharge Orders: Discharge Order (Routine); Ordered 06/02/20 Ordered By: Fili Catalan/Other Patient Handouts: Total Knee Replacement, Understanding Minimally Invasive ..., Doxycycline tablets or capsules, Oxycodone tablets or capsules Admission Data Admit Date/Time: 06/01/20 11:23 Attending Provider: Haroldo Gore Admit Provider: Haroldo Gore Primary Care Provider: Henri Carpenter Other Interventions: Discharge Summary Assessment (RN) Last Done: 06/02/20 16:01
== END 2020-06-02 17:07 | disposition home health service (06) ==
LOC: ASU 06:01 → 3N 06:01
DX: Z68.42 Body mass index [BMI] 45.0-49.9, adult; Z88.0 Allergy status to penicillin; M17.11 Unilateral primary osteoarthritis, right knee; Z91.040 Latex allergy status; E66.01 Morbid (severe) obesity due to excess calories; Z79.899 Other long term (current) drug therapy; K50.90 Crohn's disease, unspecified, without complications